=== PATIENT | female | born 1930 | race Caucasian/White ===

== ENCOUNTER 2016-12-18 09:00 | Observation (INO) ==
[2016-12-18 10:22] LABS: Basophils % 0.4 % (0.0-0.8); Eosinophils # 0.2 10*3/uL (0.0-0.87); Eosinophils % 3.1 % (0.00-10.9); Hematocrit 35.2 VOL% (35.7-47.0); Hemoglobin 12.2 GM/DL (12.0-16.0); Immature Granulocytes % 0.4 %; Immature Granulocytes Absolute 0.03 #; Lymphocytes # 1.5 10*3/uL (1.4-4.0); Lymphocytes % 20.1 % (21.3-54.2); Mean Corpuscular HGB Conc 34.7 GM/DL (32-36); Mean Corpuscular Hemoglobin 31 PG (27-34); Mean Corpuscular Volume 90.7 FL (87-102); Monocytes # 0.6 10*3/uL (0.11-0.8); Monocytes % 8.5 % (1.7-12.7); Neutrophils # 4.9 10*3/uL (1.4-7.4); Neutrophils % 67.5 % (38.7-73.9); Platelet Count 156 T/CUMM (130-400); Red Blood Count 3.88 MC/CUMM (3.8-5.5); Red Cell Distribution Width 12.9 % (9.3-17.3); White Blood Count 7.2 T/CUMM (4-12)
[2016-12-18 10:28] LABS: INR 1.1; PT Patient Result 11.3 SECS; Partial Thromboplastin Time 28.4 SECS (0-40)
--- NOTE | 2016-12-18 10:32 | Emergency Department Note ---
ITeto Brooke, am scribing for, and in the presence of, Veda Esposito DO 10:17 . IVaibhav Debra, DO, personally performed the services described in this documentation, ascribed by Dina Irene in my presence, and it is both accurate and complete . Arrival - Arrival Chief Complaint: Weakness Stated Complaint: sob, high heart rate ED Nursing Triage Note: pt sent from dr merritt's office for c/o weakness and shortness of breath. states her HR was in 140's at Dr Merritt's office. reports weakness for 2 weeks. Mode of Arrival: Wheelchair Limitations: No Limitations Source: Patient, Family, RN Notes Reviewed Time Seen by Provider: 12/18/16 09:54 - History of Present Illness HPI Narrative: Patient is a 86 year old female who presents to the ED with c/o generalized weakness that has been ongoing for the past couple of weeks. Patient had an appointment with Dr. Moss, this morning, and he sent her here to be worked up. Patient says when the weakness "spells" start, she has to sit down or she thinks she is "going to pass out." Patient has also been having some shortness of breath but denies any right now. She denies having any pain or dysuria. She has no PMHx of afib, CHF, HTN, TIA, GERD, and back/neck problems. Patient's Statistical Modeler is Dr. Villagomez. Onset (ago): week(s) (couple) Allergies/Adverse Reactions: Allergies Allergy/AdvReac Type Severity Reaction Status Date / Time No Known Allergies Allergy Verified 09/13/16 19:26 Home Medications: Home Medications Medication Instructions Recorded Confirmed Type Atorvastatin [Lipitor] 20 mg PO BEDTIME 11/14/14 12/18/16 History Esomeprazole Magnesium [Nexium] 40 mg PO DAILY 11/14/14 12/18/16 History Sertraline [Zoloft] 50 mg PO DAILY 11/14/14 12/18/16 History Ferrous Sulfate [Ferrous Sulfate 325 mg PO MOWEFR 10/29/15 12/18/16 History Cap] Metoprolol Tartrate 100 mg PO BID W/MEALS 12/04/15 12/18/16 History Multivit-Min/FA/Lycopen/Lutein 1 each PO DAILY 09/13/16 12/18/16 History [Centrum Silver Tablet] Apixaban [Eliquis] 2.5 mg PO BID #60 tablet 09/21/16 12/18/16 Rx Furosemide Tab [Lasix Tab] 40 mg PO DAILY #30 tablet 09/21/16 12/18/16 Rx Review of System - Review of System 12 point system: reviewed and no additional remarkable complaints except as stated - Review of System Constitutional: Absent: fever Respiratory: Present: other (shortness of breath). Absent: respiratory distress Cardiovascular: Absent: chest pain Skin: Absent: rash Neurological: Present: weakness (generalized) Medical,Surgical,& Family Hx - Medical History Cardio: History of: Cardiac Dysrhythmia (A-fib), CHF, Hypertension Neurology: History of: TIA (many years ago) No history of: Seizures HEENT: History of: Ear Problem (hard of hearing), Dental Problems (wears dentures) Gastrointestinal: History of: GERD Musculoskeletal: History of: Back/Neck Problems - Surgical History Cardiac Surgeries: Patient Denies: Cardiac Catheterization HEENT Surgeries: Surgical HX of: Eye Surgery (cataracts) Abdominal Surgeries: Surgical HX of: Appendectomy, Colonoscopy, EGD Reproductive Surgeries: Surgical HX of;: Hysterectomy Orthopedic Surgeries: Surgical HX of;: Spinal Surgery (back surgery) - Family History Family History: Reports;: Family Cancer (BROTHER), Family Stroke (FATHER) Denies;: Family Diabetes, Family Heart Disease, Family Hypertension, Family Psychiatric Problems - Social History Smoking Status: Never smoker Frequency of Alcohol Use: None Type of Drug Use: None Exam Vital Signs: Vital Signs Temperature 98.3 F 12/18/16 10:25 Pulse Rate 116 H 12/18/16 11:00 Respiratory Rate 18 12/18/16 11:00 Blood Pressure 154/100 12/18/16 11:00 O2 Sat by Pulse Oximetry 99 12/18/16 11:00 - General General appearance: alert, in no apparent distress - Head Head exam: Present: atraumatic, normocephalic - Eye Eye exam: Present: normal appearance, PERRL, EOMI - ENT ENT exam: Present: normal exam - Neck Neck exam: Present: normal inspection - Chest Chest inspection: Present: normal inspection, symmetric chest wall rise - Respiratory Respiratory exam: Present: normal lung sounds bilaterally - Cardiovascular Cardiovascular exam: Present: regular rate, irregular rhythm, normal heart sounds - Abdominal Exam Abdominal exam: Present: distention, tenderness. Absent: soft - Extremities Exam Extremities exam: Present: normal inspection. Absent: pedal edema - Back Exam Back exam: Present: normal inspection - Neurological Exam Neurological exam: Present: alert, oriented X3, CN II-XII intact - Psychiatric Psychiatric exam: Present: normal affect, normal mood - Skin Skin exam: Present: warm, dry, intact, normal color Results - Labs CBC & BMP: 12/18/16 09:56 12/18/16 09:56 Lab Results: I have reviewed the patients labs Labs: Laboratory Tests 12/18/16 09:56 Hct 35.2 L Lymph % (Auto) 20.1 L Laboratory Tests 12/18/16 10:38 Urine Urobilinogen < 2.0 H Laboratory Tests 12/18/16 09:56 Creatinine 1.10 H Troponin I 0.051 H Laboratory Tests 12/18/16 09:56 B-Natriuretic Peptide 390 H - Diagnostic Findings Procedure: Chest x-ray: report reviewed by me (No significant change from September 14, 2016.)
[2016-12-18 10:50] LABS: Alanine Aminotransferase 19 U/L (13-56); Albumin 3.7 G/DL (3.4-5.0); Alkaline Phosphatase 73 U/L (45-117); Aspartate Amino Transferase 22 U/L (0-37); Blood Urea Nitrogen 18 MG/DL (7-18); Glucose 89 MG/DL (74-106); Osmolality,Calculated 283.1 MOS/KG (273-304); Potassium 3.9 MMOL/L (3.5-5.1); Sodium 142 MMOL/L (136-145); Total Protein 6.8 G/DL (6.4-8.3)
[2016-12-18 10:50] LABS: Apearance,Urine CLEAR (Clear); Bilirubin,Urine Negative (Negative); Blood, Urine Negative (Negative); Glucose,Urine (UA) Negative (Negative); Ketones,Urine Negative (Negative); Mucus,Urine Occasional /LPF (Occasional); Nitrite,Urine Negative (Negative); Protein,Urine Negative; RBC,Urine 1 /HPF (0-4); Urine Color Straw (Yellow); Urine Specific Gravity 1.003 (1.001-1.035); Urine Urobilinogen < 2.0 EU/DL (0.2-1.0); WBC,Urine <1 /HPF (0-6)
--- NOTE | 2016-12-18 10:54 | XRay Report ---
XR chest 1V portable Indication: Weak Comparison: Chest x-ray dated September 14, 2016 Technique: Single frontal view of the chest Findings: Continued cardiomegaly. Continued chronic/emphysematous change of the lungs. No brian pulmonary edema. Diffuse osteopenia. IMPRESSION: No significant change from September 14, 2016. PROCEDURE INTERPRETED AT [facility] DEPARTMENT OF RADIOLOGY Final Report Signed by: Dr Jean Echols
--- NOTE | 2016-12-18 10:58 | EKG Report ---
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
[2016-12-18 11:00] LABS: Troponin I Only 0.051 NG/ML (0.00-0.045)
[2016-12-18] MEDS ORDERED: MORPHINE 2 MG/1 ML SYRINGE IV PRN (12:29)
[2016-12-18] MEDS ORDERED: ACETAMINOPHEN 325 MG TABLET PO PRN (12:29)
[2016-12-18] MEDS ORDERED: DOCUSATE SODIUM 100 MG CAPSULE PO PRN (12:29)
[2016-12-18] MEDS ORDERED: guaiFENesin/DM ER 600-30 MG TABLET PO PRN (12:29)
[2016-12-18] MEDS ORDERED: ONDANSETRON 4 MG/2 ML VIAL IV PRN (12:29)
[2016-12-18] MEDS ORDERED: diphenhydrAMINE CAP 25 MG CAPSULE PO PRN (12:29)
[2016-12-18] MEDS ORDERED: SODIUM CHLORIDE 0.9% 1,000 ML IV SCH (12:30)
[2016-12-18] MEDS ORDERED: FERROUS SULFATE 325 MG TABLET PO SCH (12:30)
--- NOTE | 2016-12-18 12:38 | Hospitalist History & Physical ---
Assessment and Plan - Time spent with patient Time spent with patient: Greater than 30 minutes (1) Weakness Status: Chronic Assessment and plan: Ms. noriega is a 86-year-old white female with history of hypertension, chronic A. fib on Eliquis admitted to telemetry by the hospitalist service with A. fib with RVR and elevated troponins with abnormal EKG. Will restart patient's home medicines. Her heart rate is fluctuating now between 80 and 120. Patient is stable and asymptomatic at this time. We will go ahead and consult cardiology for her A. fib with RVR, elevated troponins and abnormal EKG. Patient has seen Dr. castillo before. We will go ahead and get serial troponins along with serial EKG. Will check labs in the morning. We will go ahead and hold patient n.p.o. until cardiology sees. This is all been discussed with Dr. Escobedo and further recommendations to follow. Current Visit: No (2) Atrial fibrillation with RVR Status: Resolved Current Visit: No (3) Essential (primary) hypertension Status: Chronic Current Visit: No (4) Chronic anticoagulation Status: Chronic Current Visit: No (5) Abnormal EKG Status: Acute Current Visit: Yes History of Present Illness Chief complaint: Weak spells History of present illness: Ms. Noriega is a 86 year old female resident of [facility] with history of chronic A. fib on Eliquis, dyslipidemia, CHF, hypertension, and depression presenting to the ED with a 2 week history of intermittent weak spells. Patient states she will get really weak and feel like she is going to pass out. She will sit down and then it will pass within a few minutes. Patient states she went to her primary care physician Dr. Moss this morning for these weak spells and she was found to be in A. fib with RVR so he sent her to the ED for further evaluation. She has no complaints of chest pain or shortness of breath or diaphoresis accompanying the spells. She denies headache , dysphagia, abdominal pain, chest pain, shortness of breath, or lower extremity edema. Right now patient's heart rate is fluctuating between 80 and 116. Her blood pressure is elevated at 122/110. Patient states she took all of her medicines this morning except for her iron pill. Patient's CBC is normal , troponins elevated at 0.051, an elevated BNP of 390. Her EKG is showing A. fib with RVR, abnormal left axis deviation, incomplete right bundle branch block , old septal infarct, along with an ST and T-wave abnormality with possible lateral and inferior ischemia. Upon exam patient is alert and oriented and asymptomatic at this time. She is in A. fib with her heart rate fluctuating between 80 and 120. Patient had a recent admission by cardiology on 09-25 where she was in A. fib with RVR and acute CHF exacerbation. She had been on Coumadin for A. fib until that time and she was changed to Eliquis. After discussion with Dr. Esposito the ER physician and Dr. Escobedo the hospitalist it was agreed patient will be admitted for further evaluation Home Medications Medication Instructions Recorded Confirmed Type Atorvastatin [Lipitor] 20 mg PO BEDTIME 11/14/14 12/18/16 History Esomeprazole Magnesium [Nexium] 40 mg PO DAILY 11/14/14 12/18/16 History Sertraline [Zoloft] 50 mg PO DAILY 11/14/14 12/18/16 History Ferrous Sulfate [Ferrous Sulfate 325 mg PO MOWEFR 10/29/15 12/18/16 History Cap] Metoprolol Tartrate 100 mg PO BID W/MEALS 12/04/15 12/18/16 History Multivit-Min/FA/Lycopen/Lutein 1 each PO DAILY 09/13/16 12/18/16 History [Centrum Silver Tablet] Apixaban [Eliquis] 2.5 mg PO BID #60 tablet 09/21/16 12/18/16 Rx Furosemide Tab [Lasix Tab] 40 mg PO DAILY #30 tablet 09/21/16 12/18/16 Rx Allergies Allergy/AdvReac Type Severity Reaction Status Date / Time No Known Allergies Allergy Verified 09/13/16 19:26 Medical,Surgical,& Family Hx - Medical History Cardio: History of: Cardiac Dysrhythmia (A-fib), CHF, Hypertension Neurology: History of: TIA (many years ago) No history of: Seizures HEENT: History of: Ear Problem (hard of hearing), Dental Problems (wears dentures) Gastrointestinal: History of: GERD Musculoskeletal: History of: Back/Neck Problems - Surgical History Cardiac Surgeries: Patient Denies: Cardiac Catheterization HEENT Surgeries: Surgical HX of: Eye Surgery (cataracts) Abdominal Surgeries: Surgical HX of: Appendectomy, Colonoscopy, EGD Reproductive Surgeries: Surgical HX of;: Hysterectomy Orthopedic Surgeries: Surgical HX of;: Spinal Surgery (back surgery) - Family History Family History: Reports;: Family Cancer (BROTHER), Family Stroke (FATHER) Denies;: Family Diabetes, Family Heart Disease, Family Hypertension, Family Psychiatric Problems - Social History Smoking Status: Never smoker Frequency of Alcohol Use: None Type of Drug Use: None Lives With:: Assisted-living Functional capacity: independent ambulation Review of systems: A complete 10 system review of systems was obtained and pertinent positives and negatives per HPI Exam - Constitutional Vitals: Period Temp Pulse Resp BP Sys/Jackson Pulse Ox Last 24 Hr 98.3 F-98.3 F 88-116 16-18 122-154/93-110 94-100 Exam: Constitutional System: No distress. No tremulousness. Head: Normocephalic, atraumatic. Ears, Nose and Throat System: No evidence of Otitis or Mastoiditis. No epistaxis or discharge Eyes System: Pupils equal, round, and reactive. Extraocular muscles intact. Neck: Supple, without adenopathy, No jugular venous distention. No thyromegaly, neck mass, or prior surgery apparent. Respiratory System: Chest clear to auscultation. Cardiovascular System: Heart with irregularly irregular rate and rhythm. No murmur. GI System: Abdomen soft, nontender. Normo active bowel sounds present. Musculoskeletal System: limbs with no pedal edema. Full distal pulses. Neurological System: No discernable sensory deficit. No aphasia Psychiatric System: Conversation is rational Results - Labs CBC & BMP: 12/18/16 09:56 12/18/16 09:56 Lab Results: I have reviewed the past 24 hour labs - Impressions EKG showing A. fib with RVR, left axis deviation, incomplete right bundle branch block, old septal infarct, and ST and T-wave abnormality with possible lateral and inferior ischemia
--- NOTE | 2016-12-18 13:06 | EKG Report ---
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
[2016-12-18 14:18] LABS: Troponin I Only 0.052 NG/ML (0.00-0.045)
[2016-12-18] MEDS: FUROSEMIDE 40 MG TABLET PO SCH (14:51)
[2016-12-18] MEDS: MULTIVITAMIN (CENTRUM) TABLET PO SCH (14:51)
[2016-12-18] MEDS: APIXABAN 2.5 MG TABLET PO SCH ×2 (14:51→20:19)
[2016-12-18] MEDS: SERTRALINE 50 MG TABLET PO SCH (14:52)
[2016-12-18] MEDS: PANTOPRAZOLE 40 MG TABLET PO SCH (14:52)
--- NOTE | 2016-12-18 15:20 | Cardiology Consult Note ---
<Debi Blair E - Last Filed: 12/18/16 15:17> Assessment and Plan - Time spent with patient Time spent with patient: Greater than 30 minutes (due to assessment, plan, and documentation) (1) Atrial fibrillation with RVR Status: Acute Assessment and plan: SEE PLAN OF CARE LISTED BELOW. Current Visit: No (2) Weakness Status: Chronic Assessment and plan: SEE PLAN OF CARE LISTED BELOW. Current Visit: No (3) Essential (primary) hypertension Status: Chronic Assessment and plan: SEE PLAN OF CARE LISTED BELOW. Current Visit: No (4) Chronic anticoagulation Status: Chronic Assessment and plan: SEE PLAN OF CARE LISTED BELOW. Current Visit: No (5) Abnormal EKG Status: Acute Assessment and plan: SEE PLAN OF CARE LISTED BELOW. Current Visit: Yes (6) Elevated troponin Status: Acute Assessment and plan: SEE PLAN OF CARE LISTED BELOW. Current Visit: Yes (7) Carotid bruit Status: Acute Assessment and plan: SEE PLAN OF CARE LISTED BELOW. Current Visit: Yes History of Present Illness - Data of Consult Patient: known to practice within the last 3 years (followed by Dr. Villagomez) Consult date: 12/18/16 Requesting Physician: Heydi Mcintosh Primary care physician: Sang Moss - Consult Narrative Reason for consult: AF RVR, elevated troponin, abnormal EKG History of present illness: CHEMISTRY LAB INSTRUCTOR: DR. VILLAGOMEZ PCP: DR. MOSS Ms. Portillo is a 86 year old female who is a resident of [facility]. She has a history of chronic atrial fibrillation on chronic anticoagulation, hypertension, prior TIA, gastroesophageal reflux disease, aortic sclerosis, dyslipidemia, former smoker. She has risk factors significant for: age, hypertension, hyperlipidemia, former smoker, sedentary lifestyle. She had attempted cardioversion November 15, [address]ag[address]. At that time, she underwent transesophageal echocardiogram which revealed ejection fraction of 55%, trace MR, aortic valve sclerosis, trace AI, moderate TR, PAP 50 mmHg, plaque seen in the descending aorta. She is status post esophageal stricture dilation by Dr. Sam 12/04/15. To her knowledge she has never undergone left heart catheterization and I do not see any records of this. She had a normal exercise cardiolyte stress test on 10/07/13 with ejection fraction of 54%. She has been trialed with amiodarone loading and dosing in the past, but has had persistent atrial fibrillation despite this. Ms. Portillo presented to the emergency department today from Dr. Moss's office for further evaluation of weakness and atrial fibrillation with rapid ventricular response. The patient tells me for the past several months, she has been having "weak spells" where she will feel weak and mildly short of breath all of a sudden. These happen at rest but also happen when she is ambulating and she has to stop and sit for a few minutes to wait for the feeling to pass. She reports she almost feels as if she might "pass out." These have increased in frequency over the past couple of weeks and she went to Dr. Moss's office today for further evaluation. According to the notes, her heart rate at Dr. Moss's office was somewhere between 140-150 and she was urgently sent here. We do not have an actual record of this heart rate on file. She was admitted through the emergency room to hospitalist services and we were consulted to see her. Upon admission, she is noted to have a mildly abnormal creatinine of 1.1. She has had a minimally elevated flat troponin with normal CK-MB and normal CPK. She denies recent chest pain, dyspnea on exertion, dizziness, syncope, diaphoresis, nausea, vomiting. She does admit to some diarrhea in the past coupld of days. She was last hospitalized September 13, 2016 with UTI, weakness, and increased ventricular rate with CHF. Urinalysis was obtained and there is no urinary tract infection present. BNP is 390. Clinically, she shows no overt signs of heart failure at this time. Dr. Flores to follow with further plan and addendum. ASSESSMENT/PLAN: 1. ATRIAL FIBRILLATION W/ RVR - Rates between 90-120s. We'll start her on Cardizem CD 120mg PO daily to hopefully help better control her rates. 2. WEAKNESS - Asymptomatic at this time. Patient reports these episodes occur at random and pass within a few minutes. We'll obtain carotid duplexes. These episodes could be due to intermittent episodes of dysrhythmias, but we will also check carotid duplexes since she has had a TIA in the past. 3. HYPERTENSION - Blood pressure has been elevated since admission. We'll start her on Cardizem CD 120mg PO daily to hopefully help better control her heart rate and blood pressure. 4. CHRONIC ANTICOAGULATION - Continue Eliquis. H&H stable. No signs of overt bleeding. 5. ABNORMAL EKG - No acute changes from previous admission. EKG shows atrial fibrillation, incomplete right bundle branch block, and non-specific ST-T changes. 6. ELEVATED TROPONIN - Troponins are flat with normal CPK and CK-MB. Patient denies chest pain at rest or on exertion, denies exertional SOB other than when having her weak spells which have no strong association with exertion or rest. 7. CAROTID BRUIT- Bilateral. We will obtain carotid duplexes. CC: Jazmine Escobedo MD - Home Medications and Allergies Home Medications: Home Medications Medication Instructions Recorded Confirmed Type Atorvastatin [Lipitor] 20 mg PO BEDTIME 11/14/14 12/18/16 History Esomeprazole Magnesium [Nexium] 40 mg PO DAILY 11/14/14 12/18/16 History Sertraline [Zoloft] 50 mg PO DAILY 11/14/14 12/18/16 History Ferrous Sulfate [Ferrous Sulfate 325 mg PO MOWEFR 10/29/15 12/18/16 History Cap] Metoprolol Tartrate 100 mg PO BID W/MEALS 12/04/15 12/18/16 History Multivit-Min/FA/Lycopen/Lutein 1 each PO DAILY 09/13/16 12/18/16 History [Centrum Silver Tablet] Apixaban [Eliquis] 2.5 mg PO BID #60 tablet 09/21/16 12/18/16 Rx Furosemide Tab [Lasix Tab] 40 mg PO DAILY #30 tablet 09/21/16 12/18/16 Rx Allergies/Adverse Reactions: Allergies Allergy/AdvReac Type Severity Reaction Status Date / Time No Known Allergies Allergy Verified 09/13/16 19:26 Review of systems: - Constitutional: Present: weakness, As per HPI. Absent: anorexia, chills, daytime sleepiness, excessive sweating, fever(s), frequent falls, headache(s), increased appetite, lethargy, malaise, night sweats, stops breathing during sleep, weight gain, weight loss, fatigue. - EENT Eyes: Present: As per HPI. Absent: blurry vision, diplopia, loss of vision Ears: Present: decreased hearing, wears hearing aids, As per HPI. Absent: ear discharge, ear pain Nose, mouth and throat: Present: As per HPI. Absent: dysphagia, epistaxis, headache(s), hoarseness, lip swelling, nasal congestion, neck mass, neck pain, sinus pressure, sore throat, throat swelling, tongue swelling, vertigo - Cardiovascular: Present: mild dyspnea, as per HPI. Absent: chest pain at rest , chest pain with activity, dyspnea on exertion, edema, claudication, diaphoresis, radiating jaw, neck or arm pain, lightheadedness, orthopnea, palpitations, PND - Respiratory: Present: as per HPI. Absent: dyspnea, dyspnea on exertion, cough , hemoptysis, wheezing, snoring, pain on inspiration - Gastrointestinal: Present: diarrhea, As per HPI. Absent: abdominal pain, bloating, change in bowel habits, constipation, heartburn, hematemesis, hematochezia, loose stools, melena, nausea, vomiting - Genitourinary: Present: As per HPI. Absent: difficulty urinating, dysuria, flank pain, hematuria, nocturia, urinary frequency, urinary incontinence - Musculoskeletal: Present: As per HPI. Absent: arthralgias, back pain, joint swelling, limited range of motion, muscle cramps, muscle weakness, myalgias - Neurological: Present: weakness, As per HPI. Absent: abnormal gait, abnormal speech, behavioral changes, confusion, convulsions, disequilibrium, dizziness, focal frequent falls, headache(s), memory loss, numbness, paresthesias, radicular pain, syncope, tremor(s) - Psychiatric: Present: As per HPI. Absent: anxiety, confusion, depression, panic attacks - Endocrine: Present: As per HPI. Absent: cold intolerance, fatigue, heat intolerance, polydipsia, polyphagia - Hematologic/Lymphatic: Present: As per HPI. Absent: easy bleeding, easy bruising, lymphadenopathy Medical,Surgical,& Family Hx - Medical History Cardio: History of: Cardiac Dysrhythmia (A-fib), CHF, Hypertension Neurology: History of: TIA (many years ago) No history of: Seizures HEENT: History of: Ear Problem (hard of hearing), Dental Problems (wears dentures) Gastrointestinal: History of: GERD Musculoskeletal: History of: Back/Neck Problems - Surgical History Cardiac Surgeries: Patient Denies: Cardiac Catheterization HEENT Surgeries: Surgical HX of: Eye Surgery (cataracts) Abdominal Surgeries: Surgical HX of: Appendectomy, Colonoscopy, EGD Reproductive Surgeries: Surgical HX of;: Hysterectomy Orthopedic Surgeries: Surgical HX of;: Spinal Surgery (back surgery) - Family History Family History: Reports;: Family Cancer (BROTHER), Family Stroke (FATHER) Denies;: Family Diabetes, Family Heart Disease, Family Hypertension, Family Psychiatric Problems - Social History Smoking Status: Never smoker Frequency of Alcohol Use: None Type of Drug Use: None Marital Status: Lives With:: resides at [facility] Functional capacity: uses cane/walker Physical Examination Vital Signs Temp Pulse Resp BP Pulse Ox 98.3 F 107 H 16 122/110 94 L 12/18/16 09:18 12/18/16 09:18 12/18/16 09:18 12/18/16 09:18 12/18/16 09:18 Other: General appearance: Pleasant and cooperative. Normal weight, no acute distress. - Head Head exam: Present: normal inspection, normocephalic, atraumatic. Absent: hematoma, laceration - Eye Eye exam: Present: EOMI. Absent: conjunctival injection, nystagmus, periorbital swelling, scleral icterus, laceration to eyelids Pupils: Present: PERRL. Absent: constricted, dilated, fixed, irregular, unequal - ENT ENT exam: Present: normal exam, normal external ear exam - Neck Neck exam: Present: normal inspection, bilateral carotid bruits. Absent: lymphadenopathy, meningismus, tenderness, thyromegaly - Respiratory Respiratory exam: Present: clear to auscultation bilaterally. Absent: accessory muscle use, chest wall tenderness - Cardiovascular Cardiovascular exam: Present: regular rate and rhythm, faint systolic murmur. Absent: gallop, JVD, rubs - GI/Abdominal GI/Abdominal exam: Present: normal bowel sounds, soft. Absent: distended, firm , guarding, hernia, mass, tenderness, rebound. - Extremities Exam Extremities exam: Present: normal inspection, normal capillary refill. Upper extremity pulses 2+. Lower extremity pulses 2+. Absent: calf tenderness, edema -Musculoskeletal Exam Musculoskeletal: Present: No Fluid Collection, No Pain, Normal Range of Motion - Back Exam Back exam: Present: normal inspection. Absent: muscle spasm, vertebral tenderness - Neurological Exam Neurological exam: Present: alert, oriented X3, grossly intact without resting or essential tremor - Psychiatric Psychiatric exam: Present: normal affect, normal mood - Skin Skin exam: Present: normal color, warm, dry, intact. Absent: cyanosis, diaphoretic, rash, urticaria Result/EKG - Labs CBC & BMP: 12/18/16 09:56 12/18/16 09:56 Lab Results: I have reviewed the past 24 hour labs Labs: Laboratory Results - last 24 hr 12/18/16 13:27 Total Creatine Kinase 38 D CK-MB (CK-2) < 1.0 Troponin I 0.052 H - EKG EKG results: interpreted by me EKG shows: atrial fibrillation Quality Measures - VTE Contraindication to Pharmacological VTE Prophylaxis: Already on Theraputic Agent , No Prophylaxis Needed <Dieudonne Flores Celestine - Last Filed: 12/18/16 17:19> History of Present Illness - Consult Narrative History of present illness: Patient personally interviewed and examined and chart reviewed. I discussed this case with Debi Blair NP. I agree with the evaluation assessment and plan. The patient's son was with her at the time of my evaluation. In summation and addition Ms. Portillo is a 86 year old female who has had 3 or 4 episodes of the last couple weeks of near syncope. She has had no chest pain shortness of breath or other symptoms. It was noted in Dr. Moss's office today that her heart rate was increased. She was seen Dr. Buitrago because of these episodes. She was referred to the emergency room. On review of her lab work her CBC is unremarkable as is her chemistries. Her BNP is 390 but this is really unremarkable. Her troponin is unremarkable. Because of her advanced age and her near syncopal episodes we need to at least evaluate her carotids checked for orthostatic vital signs. Will monitor her rhythm as we increase some of her medications to manage her heart race. Her symptoms may be secondary to bradyarrhythmias as well as tachyarrhythmias. I evaluated on exam the patient and I agree with the exam as stated. CC: Jazmine Escobedo MD Physical Examination Vital Signs Temp Pulse Resp BP Pulse Ox 98.3 F 107 H 16 122/110 94 L 12/18/16 09:18 12/18/16 09:18 12/18/16 09:18 12/18/16 09:18 12/18/16 09:18 Result/EKG - Labs CBC & BMP: 12/18/16 09:56 12/18/16 09:56 Labs: Laboratory Results - last 24 hr 12/18/16 13:27 Total Creatine Kinase 38 D CK-MB (CK-2) < 1.0 Troponin I 0.052 H
[2016-12-18] MEDS ORDERED: DILTIAZEM CD 120 MG CAPSULE PO SCH (16:30)
[2016-12-18] MEDS: METOPROLOL TARTRATE 100 MG TABLET PO SCH (16:53)
--- NOTE | 2016-12-18 18:02 | Ultrasound Report ---
Carotid artery ultrasound Indication: Carotid bruit Comparison: None available Color Doppler flow and spectral analysis was performed. Findings: Small amount of atherosclerotic plaque is present in both proximal internal carotid arteries. The peak systolic velocity in the right is 48 cm/s . Ratio of flow is 1.4. The peak systolic velocity in the left is 59 cm/s . Ratio of flow is 1.3 Bilateral antegrade vertebral flow is seen. Impression: No evidence of hemodynamically significant stenosis is seen, 0-49% estimated stenosis. Consensus conference on the carotid ultrasound criteria used. Ultrasound images were captured and stored. PROCEDURE INTERPRETED AT [facility] DEPARTMENT OF RADIOLOGY Final Report Signed by: Dr. Roberto Wynn
[2016-12-18] MEDS: DILTIAZEM CD 120 MG CAPSULE PO SCH (20:19)
[2016-12-18] MEDS: ATORVASTATIN 20 MG TABLET PO SCH (20:19)
[2016-12-19 02:27] LABS: Basophils % 0.7 % (0.0-0.8); Eosinophils # 0.3 10*3/uL (0.0-0.87); Eosinophils % 4.2 % (0.00-10.9); Hematocrit 34.6 VOL% (35.7-47.0); Hemoglobin 12.1 GM/DL (12.0-16.0); Immature Granulocytes % 0.5 %; Immature Granulocytes Absolute 0.03 #; Lymphocytes # 2.1 10*3/uL (1.4-4.0); Lymphocytes % 33.6 % (21.3-54.2); Mean Corpuscular Hemoglobin 31 PG (27-34); Mean Corpuscular Volume 89.9 FL (87-102); Mean Platelet Volume 11.1 FL (9.6-12.0); Monocytes # 0.4 10*3/uL (0.11-0.8); Neutrophils # 3.3 10*3/uL (1.4-7.4); Platelet Count 154 T/CUMM (130-400); Red Blood Count 3.85 MC/CUMM (3.8-5.5); Red Cell Distribution Width 12.7 % (9.3-17.3); White Blood Count 6.1 T/CUMM (4-12)
[2016-12-19 03:12] LABS: Troponin I Only 0.061 NG/ML (0.00-0.045)
[2016-12-19 03:14] LABS: Potassium 3.7 MMOL/L (3.5-5.1); Thyroid Stimulating Hormone 0.984 uIU/ml (0.358-3.74)
--- NOTE | 2016-12-19 07:37 | EKG Report ---
Stationary ECG Study [facility] Test Date: 12/19/2016 7:37:22 AM Pat Name: ALFONSO BOYLE Department: Room: 266 Gender: F Matcher: DEEPAK : 1930 Requested by: Heydi Mcintosh Order Number: [id number] Reading MD: ANIYA MATTHEWS Intervals Bernard Rate: 77 P: 999 GA: 0 QRS: -25 QRSD: 105 T: -50 QT: 420 QTc: 452 Interpretive Statements ATRIAL FIBRILLATION LEFT AXIS DEVIATION ST DEVIATION AND MODERATE T-WAVE ABNORMALITY Electronically Signed On 12-21-16 16:31:30 CDT by ANIYA MATTHEWS [email or web address]
[2016-12-19] MEDS: SERTRALINE 50 MG TABLET PO SCH (08:10)
[2016-12-19] MEDS: MULTIVITAMIN (CENTRUM) TABLET PO SCH (08:10)
[2016-12-19] MEDS: FUROSEMIDE 40 MG TABLET PO SCH (08:10)
[2016-12-19] MEDS: METOPROLOL TARTRATE 100 MG TABLET PO SCH ×2 (08:10→16:58)
[2016-12-19] MEDS: PANTOPRAZOLE 40 MG TABLET PO SCH (08:11)
[2016-12-19] MEDS: APIXABAN 2.5 MG TABLET PO SCH ×2 (08:11→21:28)
[2016-12-19] MEDS: DILTIAZEM CD 120 MG CAPSULE PO SCH (09:53)
--- NOTE | 2016-12-19 10:00 | Cardiology Progress Note ---
Assessment and Plan - Time spent with patient Time spent with patient: Greater than 30 minutes (1) Elevated troponin Status: Acute Assessment and plan: This is actually flat I think is not inconsequential and non-indicative of ischemia. Current Visit: Yes (2) Atrial fibrillation with RVR Status: Acute Assessment and plan: This is much better managed on present medications. Current Visit: No (3) Essential (primary) hypertension Status: Chronic Assessment and plan: Blood pressure stable at this time. Mostly cautious that we do not have continued orthostasis. Current Visit: No (4) Chronic anticoagulation Status: Chronic Assessment and plan: Continue present medications with Eliquis. Current Visit: No Cardiology - PN: Subj Interval history: The patient is doing fairly well. She though did have a significant orthostatic drop in her blood pressure this morning. We have started her on the Cardizem along with her metoprolol and with this she has had much better heart rate control. I am concerned that with these episodes of nearly passing out at home as well as having her have some orthostasis. We need to recheck this especially after receiving the diltiazem. There is family in the room with her and I am asked with a walker we see how she feels and does. We will repeat her blood pressures here little bit later orthostatically. Her lab work is stable. Her troponins are flat and unremarkable. Exam (Progress Note) - Constitutional Vitals: Period Temp Pulse Resp BP Sys/Jackson Pulse Ox Last 24 Hr 97.4 F-98.5 F 77-114 16-20 98-157/61-109 90-100 Exam: General appearance: Frail thin elderly female who is in no distress. She is pleasant. HEENT: Atraumatic normocephalic. Neck: Trachea is in midline is supple. Lungs: Clear anteriorly and laterally without rales rhonchi or wheezes. Cardiovascular: Irregular rhythm with very faint systolic murmur. Chest wall: Nontender. Abdomen: Soft normal bowel sounds nontender. Nondistended. Extremities: Warm without edema. Neurologic alert cooperative without deficits. Psychiatric: Cognitive function is grossly intact. Skin: Warm. Result/EKG - Labs CBC & BMP: 12/19/16 02:19 12/19/16 02:19 Lab Results: I have reviewed the past 24 hour labs Labs: Laboratory Results - last 24 hr 05/07/2512/18/16 12/19/16 13:27 21:48 02:19 WBC RBC Hgb Hct MCV MCH MCHC RDW Plt Count MPV Neut % (Auto) Lymph % (Auto) [place] % (Auto) Eos % (Auto) Baso % (Auto) Neut # (Auto) Lymph # (Auto) [place] # (Auto) Eos # (Auto) Baso # (Auto) Immature Gran % Nucleated RBC % Immature Gran # Nucleated RBCs # Sodium Potassium Chloride Carbon Dioxide Anion Gap BUN Creatinine GFR Calculation BUN/Creatinine Ratio Glucose Calculated Osmolality Calcium Total Creatine Kinase 38 D 43 38 CK-MB (CK-2) < 1.0 < 1.0 < 1.0 Troponin I 0.052 H 0.050 H 0.061 H D B-Natriuretic Peptide TSH 3rd Generation 12/19/16 12/19/16 12/19/16 02:19 02:19 02:19 WBC 6.1 RBC 3.85 Hgb 12.1 Hct 34.6 L MCV 89.9 MCH 31 MCHC 35.0 RDW 12.7 Plt Count 154 MPV 11.1 Neut % (Auto) 54.0 Lymph % (Auto) 33.6 [place] % (Auto) 7.0 Eos % (Auto) 4.2 Baso % (Auto) 0.7 Neut # (Auto) 3.3 Lymph # (Auto) 2.1 [place] # (Auto) 0.4 Eos # (Auto) 0.3 Baso # (Auto) 0.0 Immature Gran % 0.5 Nucleated RBC % 0.0 Immature Gran # 0.03 Nucleated RBCs # 0.00 Sodium 143 Potassium 3.7 Chloride 104 Carbon Dioxide 33 H Anion Gap 9.7 BUN 18 Creatinine 1.20 H GFR Calculation 37 BUN/Creatinine Ratio 15.00 Glucose 97 Calculated Osmolality 286.0 Calcium 9.0 Total Creatine Kinase CK-MB (CK-2) Troponin I B-Natriuretic Peptide 565 H TSH 3rd Generation 0.984 - Impressions Impressions: Telemetry with atrial fibrillation, ventricular response is much better controlled today. Quality Measures - VTE Contraindication to Pharmacological VTE Prophylaxis: Already on Theraputic Agent , No Prophylaxis Needed
--- NOTE | 2016-12-19 13:39 | Hospitalist Progress Note ---
Assessment and Plan (1) Atrial fibrillation with RVR Status: Acute Assessment and plan: Currently the rate is below 100 and above 60. Continue Cardizem CD. Patient is being monitored overnight. Cardiology's recommendation of the greater appreciated. Current Visit: No (2) CHF (congestive heart failure) Status: Chronic Assessment and plan: This is chronic stable. We will continue to observe on telemetry. Current Visit: No (3) Chronic anticoagulation Status: Chronic Assessment and plan: Continue anticoagulation. Current Visit: No Hospitalist: Subjective Interval history: Patient has been seen interviewed and examined and chart has been reviewed; admitted yesterday with generalized weakness atrial fibrillation with RVR. Patient has been seen by cardiology but recommended Cardizem CD for management of tachyarrhythmia. She is currently with a heart rate of around 70s. No chest pain or shortness of breath. Prefer to monitor her some more through tomorrow. Exam - Constitutional Vitals: Period Temp Pulse Resp BP Sys/Jackson Pulse Ox Last 24 Hr 97.4 F-98.5 F 77-114 16-20 98-151/61-108 90-100 General appearance: under weight - Head Head exam: Present: normocephalic, atraumatic - Eye Eye exam: Present: EOMI Pupils: Present: ANAND - ENT ENT exam: Present: normal exam - Neck Neck exam: Present: normal inspection - Respiratory Respiratory exam: Present: clear to auscultation bilaterally - Cardiovascular Cardiovascular exam: Present: irregular rhythm, other (Atrial fibrillation) - GI/Abdominal GI/Abdominal exam: Present: normal bowel sounds, soft - Extremities Exam Extremities exam: Present: full ROM - Back Exam Back exam: Present: normal inspection - Neurological Exam Neurological exam: Present: alert, oriented X3, CN II-XII intact - Psychiatric Psychiatric exam: Present: normal affect, normal mood - Skin Skin exam: Present: normal color, warm, dry Results - Labs CBC & BMP: 12/19/16 02:19 12/19/16 02:19 Lab Results: I have reviewed the past 24 hour labs Quality Measures - VTE Contraindication to Pharmacological VTE Prophylaxis: Already on Theraputic Agent , No Prophylaxis Needed
[2016-12-19] MEDS: ATORVASTATIN 20 MG TABLET PO SCH (21:28)
[2016-12-20] MEDS: MULTIVITAMIN (CENTRUM) TABLET PO SCH (08:40)
[2016-12-20] MEDS: METOPROLOL TARTRATE 100 MG TABLET PO SCH (08:40)
[2016-12-20] MEDS: SERTRALINE 50 MG TABLET PO SCH (08:41)
[2016-12-20] MEDS: PANTOPRAZOLE 40 MG TABLET PO SCH (08:41)
[2016-12-20] MEDS: FUROSEMIDE 40 MG TABLET PO SCH (08:41)
[2016-12-20] MEDS: APIXABAN 2.5 MG TABLET PO SCH (08:41)
[2016-12-20] MEDS: DILTIAZEM CD 120 MG CAPSULE PO SCH (09:48)
[2016-12-20 11:49] VITALS: BP 120/76
--- NOTE | 2016-12-20 12:16 | Discharge Summary ---
<Nikolas Escalera - Last Filed: 12/20/16 12:13> Diagnosis - Discharge Diagnosis (1) Atrial fibrillation with RVR Status: Acute (2) CHF (congestive heart failure) Status: Chronic (3) Chronic anticoagulation Status: Chronic Discharge Plan - Discharge Data Disposition: Disch To Home/Self Care Condition at Discharge: Stable Discharge Diet: heart healthy Activity: resume usual activities as tolerated Hygiene: no restrictions Weight Bearing at Discharge: full weight bearing Contact your physician if you experience:: fever over 101, Shortness of breath - Discharge Medications New Diltiazem Cd Cap [Cardizem CD] 120 mg PO DAILY #30 capsule Continue Atorvastatin [Lipitor] 20 mg PO BEDTIME Esomeprazole Magnesium [Nexium] 40 mg PO DAILY Sertraline [Zoloft] 50 mg PO DAILY Ferrous Sulfate [Ferrous Sulfate Cap] 325 mg PO MOWEFR Metoprolol Tartrate 100 mg PO BID W/MEALS Multivit-Min/FA/Lycopen/Lutein [Centrum Silver Tablet] 1 each PO DAILY Furosemide Tab [Lasix Tab] 40 mg PO DAILY #30 tablet Apixaban [Eliquis] 2.5 mg PO BID #60 tablet - Follow Up or Referral - Forms/Instructions Exam - Constitutional Vitals: Period Temp Pulse Resp BP Sys/Jackson Pulse Ox Last 24 Hr 97.0 F-98.9 F 70-92 16-20 99-132/50-79 93-98 General appearance: normal weight - Head Head exam: Present: normocephalic, atraumatic - Eye Eye exam: Present: EOMI Pupils: Present: ANAND - ENT ENT exam: Present: normal exam - Neck Neck exam: Present: normal inspection - Respiratory Respiratory exam: Present: clear to auscultation bilaterally - Cardiovascular Cardiovascular exam: Present: irregular rhythm - GI/Abdominal GI/Abdominal exam: Present: normal bowel sounds, soft - Extremities Exam Extremities exam: Present: full ROM - Back Exam Back exam: Present: normal inspection - Neurological Exam Neurological exam: Present: alert, oriented X3, CN II-XII intact - Psychiatric Psychiatric exam: Present: normal affect, normal mood - Skin Skin exam: Present: normal color, warm, dry DS: Provider Date of admission: 12/18/16 12:10 Primary care physician: Dannie Buitrago MD Attending physician on admission: Jazmine Escobedo MD Consults: 12/18/16 12:29 Consult to Physician [CONS] Routine Comment: afib w rvr, elev trop, pt of dr villagomez Consulting Provider: Cardiology - [facility] When should Consulting Provider be notified: Now Person Notified: Dr. Flores Date Notified: 12/18/16 Time Notified: 14:23 Discharging clinician: Nikolas Escalera MD <JosetteTimi valentine - Last Filed: 12/20/16 13:34> Hospital Course - Hospital Course Hospital Course: This patient is an 86-year-old female who was admitted to the ED after being sent here from her family medicine physician for further evaluation of generalized weakness and atrial fibrillation with RVR on 12/18/2016. She was noted to be in atrial fibrillation with rapid ventricular response and have an elevated troponin level 0.051 with a BNP of 390. Cardiology was consulted, patient was started on metoprolol and Cardizem infusion for rate control. She was also continued on Eliquis 2.5 twice daily. Carotid Dopplers were obtained returning hemodynamically significant stenosis. Patient responded well to rate controlling agents both for blood pressure and for atrial fibrillation. Upon review of her chart, troponin levels appear to be chronic and unrelated to this particular hospitalization. At this time, the patient has reached maximal benefit from hospitalization and is stable for discharge. She will be discharged home with appropriate follow-up instructions per discharge orders and addendum to followed by Dr. Escalera. He should follow-up with Dr. Villagomez in 2 weeks as well as her PCP. - Time spent with patient Time with patient DS: Greater than 30 minutes DS: Provider Expected date of discharge: 12/20/16
--- NOTE | 2016-12-20 14:03 | Cardiology Progress Note ---
Assessment and Plan (1) Elevated troponin Status: Chronic Assessment and plan: This is actually flat I think is not inconsequential and non-indicative of ischemia. This is not an issue. Current Visit: Yes (2) Atrial fibrillation with RVR Status: Acute Assessment and plan: This is much better managed on present medications. She has had no breakthrough tachyarrhythmias. Current Visit: No (3) Essential (primary) hypertension Status: Chronic Assessment and plan: Blood pressure stable at this time. No further abnormal orthostatic vital signs. Current Visit: No (4) Chronic anticoagulation Status: Chronic Assessment and plan: Continue present medications with Eliquis. Current Visit: No (5) Near syncope Status: Acute Assessment and plan: This is been going on for last several weeks and are episodic. No other particular symptomatology. She has had no further symptoms here. This could be some orthostasis but it may also be an heart rate is going to fast. Hopefully we will have this managed on her addition of diltiazem. If she continues to have the she will need a event monitor or [employer] monitor. Current Visit: Yes Cardiology - PN: Subj Interval history: Patient is doing well. She has no complaints today. Her heart rate is doing much better with her present medical therapy. She has no shortness of breath and had no spells of syncope or syncope. She is not having a fast heart rate breakthroughs that she was previously having. She has been up ambulating without difficulty. She has had no further orthostatic drop in her blood pressures are long-standing. She is really reached maximal hospital benefit and has discharge planned. She will keep follow-up with Dr. figueroa I think it is ordered for 2 weeks. Exam (Progress Note) - Constitutional Vitals: Period Temp Pulse Resp BP Sys/Jackson Pulse Ox Last 24 Hr 97.0 F-98.9 F 70-92 16-20 99-132/50-79 93-98 Exam: General appearance: Frail thin elderly female who is in no distress. She is pleasant. HEENT: Atraumatic normocephalic. Neck: Trachea is in midline is supple. Lungs: Clear anteriorly and laterally without rales rhonchi or wheezes. Cardiovascular: Irregular rhythm with very faint systolic murmur. Chest wall: Nontender. Abdomen: Soft normal bowel sounds nontender. Nondistended. Extremities: Warm without edema. Neurologic alert cooperative without deficits. Psychiatric: Cognitive function is grossly intact. Skin: Warm. Result/EKG - Labs CBC & BMP: 12/19/16 02:19 12/19/16 02:19 - Impressions Impressions: Telemetry with atrial fibrillation managed ventricular response. Reviewing her traction she has had no breakthrough of any bradycardia or significant tachycardia. Quality Measures - VTE Contraindication to Pharmacological VTE Prophylaxis: Already on Theraputic Agent , No Prophylaxis Needed
== END 2016-12-20 15:33 | disposition home or self-care (01) ==
LOC: N.ED 09:00 → INTOOBSV 12:10 → SUATTDRO 12:10 → N.EDINP 12:10 → N.TELES 14:10
PROVIDERS: ADMIT Family Medicine; ATTEND Internal Medicine Infectious Disease